=== PATIENT | male | born 1975 | race African-American/Black ===

== ENCOUNTER 2016-12-15 21:38 | Emergency (ER) | payer SELFPAY ==
[~2016-12-15] VITALS: Ht 190.5 cm; Wt 136.1 kg
[2016-12-15] MEDS ORDERED: NKM (21:50)
[2016-12-15 22:01] VITALS: BP 149/84
[2016-12-15] MEDS ORDERED: Ketorolac 60mg Inj IM ONE (22:15)
[2016-12-15] MEDS ORDERED: IBUPROFEN600 MG ORAL (22:38)
[2016-12-15] MEDS ORDERED: HYDROCHLOROTH12.5 M2 ORAL (22:38)
--- NOTE | 2016-12-15 22:44 | Emergency Room Report ---
History of Present Illness General Chief Complaint: Headache Source: Patient Present Illness HPI The patient is a 41-year-old male presented after increased right-sided facial pain and swelling. Patient reports having recent increasing pain to the right side of his face the patient stated that he had prior history of the upper tooth on the right side which had been broken. Grade having subjective fever. He denied any difficulty swallowing. He reports having some mild difficulty breathing. He had is a smoker. Patient had nonproductive cough. The patient gradual onset of symptoms over the past 2 days. Allergies: Coded Allergies: No Known Allergies (Unverified , 12/15/16) Patient History Past Medical History: see triage record Reviewed Nursing Documentation: PMH: Agreed, PSxH: Agreed Nursing Documentation-PMH Past Medical History: No Stated History Review of Systems All Other Systems: negative except mentioned in HPI Physical Exam Vital Signs Date Time Temp Pulse Resp B/P Pulse Ox O2 Delivery O2 Flow Rate FiO2 12/15/16 21:45 99.1 94 18 149/84 97 Room Air General Appearance: well appearing, no apparent distress, alert, GCS 15, non- toxic Head: normocephalic, atraumatic ENT: hearing grossly normal, normal voice, other - dental fracture to upper right incisor, slight facial swelling Neck: full range of motion, supple Respiratory: no respiratory distress, speaking full sentences Musculoskeletal: normal inspection, no calf tenderness, other - trace pedal edema Neurologic: normal inspection, alert, oriented x3, responsive, normal gait Psychiatric: mood/affect normal Skin: no rash Medical Decision Making Diagnostic Impression: Primary Impression: Dental infection Additional Impression: Pedal edema ER Course Patient presented for facial swelling. Differential diagnoses included wasn't limited to abscess, contusion, sinusitis, cellulitis among others. Patient's benign exam and does not appear to require any further imaging or laboratory testing at this time. A chest x-ray and EKG were performed due to patient having complained of some chest tightness. I EKG interpreted by me showed normal sinus rhythm with a rate of [address] or T wave changes. Chest x-ray one view interpreted by me showed normal cardiac size without infiltrate. The patient was given IM penicillin as well as IM Toradol.The patient is advised to follow up with primary care doctor in 1-2 days. Patient is advised to return if any worsening condition or if any changes in status that are concerning. EKG Diagnostic Results Rate: normal - 75 Rhythm: NSR ST Segments: no acute changes Rhythm Strip Diag. Results EP Interpretation: yes Rhythm: NSR, no PVC's, no ectopy Chest X-Ray Diagnostic Results EP Interpretation: Yes Findings: no consolidation, no pneumothorax, no acute cardiopulmonary disease Number of Views: 1 Last Vital Signs Date Time Temp Pulse Resp B/P Pulse Ox O2 Delivery O2 Flow Rate FiO2 12/15/16 22:01 99.1 75 18 149/84 97 Room Air Status: improved Disposition: HOME, SELF-CARE Condition: Stable Scripts Hydrochlorothiazide* (HYDROCHLOROTHIAZIDE*) 12.5 Mg Capsule 12.5 MG ORAL DAILY, #20 CAP Prov: Ghassan Gilliland 12/15/16 Ibuprofen* (MOTRIN*) 600 Mg Tablet 600 MG ORAL Q8H Y for For Pain, #30 TAB 0 Refills Prov: Ghassan Gilliland 12/15/16 Referrals: NOT CHOSEN IPA/MD,REFERRING (PCP) Patient Instructions: Dental Pain Ghassan Gilliland December 15, 2016 22:44
[2016-12-15] MEDS ORDERED: Bicillin LA 1.2 Million Units Syr IM ONE (22:45)
[2016-12-15 23:00] VITALS: BP 149/84
--- NOTE | 2016-12-16 12:33 | Diagnostic Imaging Report ---
Indication: Chest Pain Comparison: None A single view chest radiograph was obtained. Findings: Cardiomediastinal appearance is within normal limits for age. Pulmonary vascularity is appropriate. The diaphragmatic contour is smooth and costophrenic angles are sharp. No pleural effusions are identified. The bones are unremarkable. Impression: No acute findings
--- NOTE | 2016-12-17 17:34 | Cardiology Report ---
APPROVED REPORT EKG Measurement Heart [id number] Normal sinus rhythm Nonspecific T wave abnormality Abnormal ECG
== END 2016-12-15 23:00 | disposition home or self-care (01) ==
LOC: EMR 22:41
DX: K04.7 Periapical abscess without sinus (principal); R60.9 Edema, unspecified; R22.0 Localized swelling, mass and lump, head
CPT/HCPCS: 71010; 93005; 96372; 99284; J0570; J0561